=== PATIENT | male | born 1950 | race Caucasian/White ===

== ENCOUNTER 2019-06-06 12:15 | Inpatient (IN) | payer OTHER, MEDICAID ==
[~2019-06-06] VITALS: Ht 167.6 cm; Wt 87.5 kg
--- NOTE | 2019-06-06 12:21 | NUR ---
Patient to ER bed 7 to gown for evaluation. Side rails up. Report given to CARLY Presley.
--- NOTE | 2019-06-06 12:25 | NUR ---
Pt kelly by caregiver, pt presents to ER with persistent fever 102.0 and wheezing,O2 95% at this time, pt Alert to voice, opens eyes spontaneously, pt contracted, arrived with G-tube , cap refill <3, HR elevated 122. will continue to monitor
[2019-06-06 12:28] VITALS: BP_SYST 151
[2019-06-06] MEDS ORDERED: NACL 0.9% 1,000 ML IV ONE ×2 (12:45→13:30)
[2019-06-06] MEDS ORDERED: IPRATROPIUM/ALBUTEROL SULFATE 3 ML AMPUL.NEB (DUONEB) INH ONE (12:45)
[2019-06-06] MEDS ORDERED: IBUPROFEN 100 MG/5 ML UDC GT ONE (12:45)
--- NOTE | 2019-06-06 13:07 | NUR ---
16# FR Buitrago catheter with use of sterile technique. Immediate return of 200 cc urine noted. Bedside drainage bag placed below level of bladder. Urine sample collected and sent to lab. Pt tolerated procedure . Patient arrived with buitrago in place, changed due to standard of practice prior to admission. Patient unable to toilet self.
--- NOTE | 2019-06-06 13:12 | NUR ---
Mary Nayak at bedside examining patient.
[2019-06-06] MEDS ORDERED: DILTIAZEM HCL 25 MG/5 ML VIAL IVP ONE (13:30)
[2019-06-06] MEDS ORDERED: PIPERACILLIN/TAZO 3.375 GM in NS 50 ML IV ONE (13:30)
[2019-06-06] MEDS ORDERED: VANCOMYCIN HCL 1,000 MG in NS 250 ML IV ONE (13:30)
--- NOTE | 2019-06-06 13:30 | NUR ---
# 22 gauge angiocath placed to right chest. Use of asceptic technique. Opsite placed over site. Blood return noted. Blood for lab drawn from site. Flushed with 10 cc of normal saline. No evidence of infiltration noted. Patient tolerated well.
[2019-06-06 13:32] LABS: BILIRUBIN,URINE NEGATIVE (NEGATIVE); BLOOD, URINE NEGATIVE (NEGATIVE); CLARITY/URINE CLEAR (CLEAR); COLOR,URINE YELLOW (YELLOW); GLUCOSE,URINE NEGATIVE (NEGATIVE); KETONES,URINE NEGATIVE (NEGATIVE); LEUKOCYTE ESTERASE ,URINE NEGATIVE (NEGATIVE); NITRITE, URINE NEGATIVE (NEGATIVE); PROTEIN URINE 1+ (NEGATIVE)
[2019-06-06] MEDS ORDERED: LAM100 PO (13:32)
[2019-06-06] MEDS ORDERED: OSCD500 GT (13:32)
[2019-06-06] MEDS ORDERED: BUDE6HFA INH (13:32)
[2019-06-06] MEDS ORDERED: POLY17PO20 PO (13:32)
[2019-06-06] MEDS ORDERED: ATRMDI INH (13:32)
[2019-06-06] MEDS ORDERED: BACL10TA GT (13:32)
[2019-06-06] MEDS ORDERED: LAMO150T2 PO (13:33)
[2019-06-06] MEDS ORDERED: VITD2000 GT (13:37)
[2019-06-06] MEDS ORDERED: MONT10TA25 GT (13:37)
[2019-06-06] MEDS ORDERED: MULT-33 GT (13:37)
[2019-06-06] MEDS ORDERED: LORA0.5T GT (13:37)
[2019-06-06] MEDS ORDERED: [UNRECOGNIZED DRUG - CODE] GT (13:37)
--- NOTE | 2019-06-06 13:37 | NUR ---
pt is receiving first NS bolus.
--- NOTE | 2019-06-06 14:15 | NUR ---
Blood cx x 2 and lactic acid were drawn.
[2019-06-06] MEDS ORDERED: VANCOMYCIN HCL 1000 MG/VIAL IV ONE ×2 (14:34→23:34)
--- NOTE | 2019-06-06 14:34 | NUR ---
Daina MURPHY running
[2019-06-06 14:35] LABS: HEMATOCRIT 39.4 % (36-54); HEMOGLOBIN 13.4 g/dL (14.0-18.0); MEAN CORPUSCULAR HEMOGLOBIN 31 pg (27-31); MEAN CORPUSCULAR HGB CONC 34 % (32-36); MEAN CORPUSCULAR VOLUME 91 fL (79.0-98.0); PLATELET COUNT (AUTO) 222 K/uL (130-430); RED BLOOD CELL COUNT(AUTO) 4.31 MIL/uL (4.2-6.2); RED CELL DISTRIBUTION WIDTH 13.5 % (9.0-15.0); WHITE BLOOD COUNT (AUTO) 20.6 K/uL (4.8-10.8)
[2019-06-06] MEDS ORDERED: PIPERACILLIN/TAZOBACTAM 3.375 GM/VIAL (ZOSYN) IV ONE (14:35)
[2019-06-06 14:40] LABS: CALCIUM 8.6 mg/dL (8.4-11.0); CREATININE 0.55 mg/dL (0.55-1.30)
[2019-06-06 14:46] LABS: ALBUMIN 2.9 g/dL (3.4-4.8); TOTAL BILIRUBIN 0.6 mg/dL (0.0-1.0)
--- NOTE | 2019-06-06 15:07 | NUR ---
Vancomycin IVPB running. Pt is currently on the secong NS bolus.
[2019-06-06 15:14] LABS: BAND % (MANUAL) 17 % (0-6); BASOPHILS % (MANUAL) 0 % (0-2); EOSINOPHILS % (MANUAL) 0 % (0-7); LYMPHOCYTES % (MANUAL) 3 % (20-46); METAMYELOCYTES % 1 % (0-0); MONOCYTES % (MANUAL) 5 % (0-11)
--- NOTE | 2019-06-06 15:40 | NUR ---
Patient will be admitted to care of Dr. Ridley. Admitted to tele unit. Will go to room 107B. Belongings list completed. Summary report printed. Report will be given at bedside.
--- NOTE | 2019-06-06 15:43 | NUR ---
ADMISSION NOTE Received patient from ER via segun, received report from AMAURY CARROLL. Patient admitted with diagnosis of PNEUMONIA/SEPSIS. Patient oriented to hospital routine, call light, toileting and safety-..
[2019-06-06 16:03] VITALS: BP_SYST 146
--- NOTE | 2019-06-06 16:35 | NUR ---
RN NOTES PATIENT IN BED AT THIS TIME OPENS EYES SPONTANEOUSLY AND COVERED WITH LIGHT BLANKET ON GOING IV ATB VANCOMYCIN INFUSING . WILL MONITOR
[2019-06-06 16:38] VITALS: BP_SYST 146
[2019-06-06] MEDS ORDERED: NACL 0.9% 1,000 ML IV SCH ×2 (16:58→17:15)
[2019-06-06] MEDS ORDERED: IPRATROPIUM BROMIDE 17 mCg/ACTUATION, 12.9 GM AER.W.ADAP INH SCH (17:00)
--- NOTE | 2019-06-06 17:44 | NUR ---
END RN NOTES PATIENT KEEP FRESH COVERED WITH LIGHT BLANKETS, NO DISTRESS , STARTED WITH GTF INTACT AND IN PLACE NO RESIDUAL NOTED JEVITY 1.2 INITIAL 60 CC/HR, KEEP HOB ELEVATED, NO SEIZURE NOTED, IV VANCOMYCIN STILL INFUSING ,WILL CONT TO MONITOR AND FOR LABS IN AM.
[2019-06-06 18:15] VITALS: BP_SYST 146
--- NOTE | 2019-06-06 18:45 | NUR ---
CLARIFICATION OF LAMICTAL PATIENT LAMICTAL DOSAGE WAS CALLED BY PHARMACY AND CALLED SNF SPOKE WITH JOVANA HINDS WHO WAS GIVING THE MEDS STATED THAT PATIENT TAKES LAMICTAL [address] BALL INFORMED AND ORDERED IS . WILL ORDER AND PHARMACY WILL NEED TO VERIFY
[2019-06-06] MEDS: NACL 0.9% 1,000 ML IV SCH (19:00)
[2019-06-06] MEDS: MONTELUKAST 10 MG TABLET GT SCH (19:03)
[2019-06-06] MEDS: ALBUTEROL SULFATE 0.083% 2.5 MG/3 ML VIAL.NEB INH SCH ×2 (19:51→23:17)
[2019-06-06] MEDS: IPRATROPIUM BROM 0.5 MG/2.5 ML VIAL.NEB (ATROVENT) INH SCH (19:51)
--- NOTE | 2019-06-06 20:30 | NUR ---
RECEIVED REPORT FROM AM CARLY MARSHALL AT 1930HR. PATIENT EYES CLOSE.IVF INFUSING AT 80ML/HR TO RIGHT UPPER CHEST SITE SECURED WELL.JEVITY 1.2 G TUBE FEEDING AT 6OML/HR.CHRISTIANSON CATHETER DRAINING WELL CLEAR ROSHAN URINE. OPENS EYES WHEN CALLED HIS NAME LOUD. NON VERBAL. BLINKS EYES . CALL LIGHT WITHIN REACH. BED IN LOW POSITION ,SIDE RAILS WITH SEIZURE PADS. SINUS TACHYCARDIA. BREATHING TREATMENT JUST DONE. WILL MONITOR CLOSELY.
[2019-06-06 20:50] VITALS: BP_SYST 150
[2019-06-06] MEDS ORDERED: LORAZEPAM 0.5 MG GT SCH (21:00)
[2019-06-06] MEDS ORDERED: LamoTRIgine 25 MG TABLET PO SCH (21:00)
[2019-06-06] MEDS ORDERED: LamoTRIgine 100 MG TABLET PO SCH (21:00)
--- NOTE | 2019-06-06 21:35 | NUR ---
NOTICED MANY MEDS ARE PENDING. CALLED OUT PATIENT PHARMACIST ,SAID LAMICTAL ORDERS ARE DUPLICATES,NO IV RATE,REST MEDS WERE WRITTEN NON FORMULARY AND CAN NOT PROCESS THEM ALL. SHE REQUESTED TO D/C DUPLICATES AND DID AND ORDER IVF RATE SEEN AT [facility].HAS BEEN CALLING PHARMACIST 3 TIMES.
--- NOTE | 2019-06-06 22:00 | NUR ---
NOTICED REDNESS FROM LEFT HIP DOWN TO LATERAL MID THIGH ONLY. NO SKIN BREAKDOWN.
--- NOTE | 2019-06-06 22:30 | NUR ---
CAN NOT FIND ZOSYN AND VANCO MEDS IN ALL MED ROOMS. ORDER GIVEN TO NSG. STRATEGY PLANNING CONSULTANT .
[2019-06-06 22:45] VITALS: BP_SYST 107
[2019-06-06] MEDS ORDERED: VANCOMYCIN HCL 1 GM/NS PREMIX 250 ML IV SCH (23:00)
[2019-06-06] MEDS: FAMOTIDINE 20 MG TABLET GT SCH (23:05)
[2019-06-06] MEDS: BACLOFEN 10 MG TABLET GT SCH (23:05)
[2019-06-06] MEDS: LORazepam 1 MG TABLET PO SCH (23:06)
[2019-06-06] MEDS: LamoTRIgine 100 MG TABLET PO SCH (23:06)
[2019-06-06] MEDS: HEPARIN SODIUM,PORCINE 5000 UNITS/ML VIAL SUBCUT SCH (23:12)
--- NOTE | 2019-06-06 23:25 | NUR ---
RECEIVED PATIENT WITH JEVITY 1.2 G TUBE FEEDING AT 60 ML/HR. CHECKED RESIDUAL THIS TIME BEFORE GIVING MEDS 200ML. RE FEED. STOPPED FEEDING ORDERED.
--- NOTE | 2019-06-06 23:30 | NUR ---
TUBE FEEDING STOPPED PER PROTOCOL.
--- NOTE | 2019-06-06 23:40 | NUR ---
COCCYX AND SACRAL AREAS ARE DARK RED SKIN PIGMENTATION. NO SKIN BREAKDOWN. CLEANSED WITH SOAP /WATER DURING BED BATH. ORAL CARE RENDERED.
[2019-06-06] MEDS: PIPERACILLIN/TAZO 4.5GM/DEX-IS 100 ML IV SCH (23:45)
--- NOTE | 2019-06-06 23:50 | NUR ---
IVPB MEDS AVAILABLE AND INITIATED ACCORDING TO ORDERS WAS GIVEN.
--- NOTE | 2019-06-07 01:10 | NUR ---
RE CHECKED RESIDUAL AFTER 1HR,40MINS. ON HOLD .NO RESIDUAL. RESUMED FEEDING AT 30ML/HR.
--- NOTE | 2019-06-07 03:15 | NUR ---
CHECKED HIP /THIGH REDNESS STILL PRESENT.
[2019-06-07] MEDS: ALBUTEROL SULFATE 0.083% 2.5 MG/3 ML VIAL.NEB INH SCH ×6 (03:18→23:19)
--- NOTE | 2019-06-07 06:00 | NUR ---
NO RESIDUAL THIS TIME. FEEDING REMAINS AT 60ML/HR.
--- NOTE | 2019-06-07 07:20 | NUR ---
CLOSING: REPORT GIVEN TO AM RN. SHOWED TO RN REDNESS LEFT HIP DOWN TO THIGH. ALL NEEDS WERE ATTENDED. HAD EPISODES OF SINUS TACHYCARDIA AT 0100 AFTER BT, AND BED BATH. WENT DOWN TO 108 -110 AFTER 3HRS.
--- NOTE | 2019-06-07 08:00 | NUR ---
RN INITIAL NOTES RECEIVED PATIENT IN BED AWAKE SMILES BACK BUT NOT VERBAL, HOB ELEVATED GTUBE FEEDING TOLERATED, NO ASPIRATION NOTED, PATIENT SUPRAPUBIC CATH INTACT, IVF TO RT CHEST INFUSING ORDERED, MD MADE AWARE PATIENT HAS WHEEZING AND ADMITTED WITH REDNESS TO LEFT THIGH, ORDERED CONT HOUSE TX WITH CALMOSEPTINE AND LOWER THE IVF TO 40 FOR THE WHEEZING , CONT WITH BREATHING TX.WILL CONT PLAN OF CARE Addendum: 06/07/19 at 2011 by Lalitha Ceron RN LATE ENTRY 1929 PATIENT CORRECTION FOR CHARTING PATIENT IS NOT ON SUPRAPUBIC CATH BUT WITH CHRISTIANSON CATH,
[2019-06-07 08:29] LABS: BASOPHILS # (AUTO) 0.1 K/uL (0.0-0.2); BASOPHILS % (AUTO) 0.4 % (0.0-2.0); HEMATOCRIT 37.1 % (36-54); HEMOGLOBIN 12.7 g/dL (14.0-18.0); LYMPHOCYTES # (AUTO) 1.1 K/uL (1.0-5.5); LYMPHOCYTES % (AUTO) 7.8 % (20.5-51.5); MEAN CORPUSCULAR HEMOGLOBIN 31 pg (27-31); MEAN CORPUSCULAR HGB CONC 34 % (32-36); MEAN CORPUSCULAR VOLUME 92 fL (79.0-98.0); MONOCYTES # (AUTO) 0.6 K/uL (0.0-1.0); NEUTROPHILS # (AUTO) 12.9 K/uL (1.8-7.7); PLATELET COUNT (AUTO) 223 K/uL (130-430); RED BLOOD CELL COUNT(AUTO) 4.05 MIL/uL (4.2-6.2); RED CELL DISTRIBUTION WIDTH 13.4 % (9.0-15.0); WHITE BLOOD COUNT (AUTO) 14.7 K/uL (4.8-10.8)
[2019-06-07 08:55] LABS: ALBUMIN 2.6 g/dL (3.4-4.8); CREATININE 0.38 mg/dL (0.55-1.30); NEUTROPHILS % (AUTO) 87.8 % (40.0-70.0); POTASSIUM 3.8 mmol/L (3.5-5.1); TOTAL BILIRUBIN 0.6 mg/dL (0.0-1.0)
[2019-06-07] MEDS: CALCIUM CARBONATE/VITAMIN D3 1 TAB TABLET GT SCH (08:57)
[2019-06-07] MEDS: LamoTRIgine 100 MG TABLET PO SCH ×2 (08:58→23:06)
[2019-06-07] MEDS: FAMOTIDINE 20 MG TABLET GT SCH ×2 (08:59→23:07)
[2019-06-07] MEDS: BACLOFEN 10 MG TABLET GT SCH ×3 (08:59→23:06)
[2019-06-07] MEDS: LORazepam 1 MG TABLET PO SCH ×2 (09:00→23:07)
[2019-06-07] MEDS: IPRATROPIUM BROM 0.5 MG/2.5 ML VIAL.NEB (ATROVENT) INH SCH ×3 (09:00→19:51)
[2019-06-07] MEDS: MULTIVITS,CA,MINERALS/IRON/FA 1 TABLET GT SCH (09:00)
[2019-06-07] MEDS: CHOLECALCIFEROL (VITAMIN D3) 2,000 UNIT TABLET GT SCH (09:00)
[2019-06-07] MEDS: POLYETHYLENE GLYCOL 3350, 17 GM/ POWD.PACK PO SCH (09:04)
[2019-06-07] MEDS: HEPARIN SODIUM,PORCINE 5000 UNITS/ML VIAL SUBCUT SCH ×2 (09:08→23:09)
--- NOTE | 2019-06-07 10:00 | NUR ---
ROUNDS PATIENT ON AND OFF AWAKE AND CONT WITH BREATHING TREATMENT , STILL WHEEZING
[2019-06-07 10:46] VITALS: BP_SYST 177
[2019-06-07] MEDS: NACL 0.9% 1,000 ML IV SCH (11:31)
--- NOTE | 2019-06-07 12:00 | NUR ---
ROUNDS PATIENT ASLEEP CONT WITH GTF AND IVF
[2019-06-07 12:59] VITALS: BP_SYST 145
[2019-06-07] MEDS: PIPERACILLIN/TAZO 4.5GM/DEX-IS 100 ML IV SCH ×2 (14:00→23:02)
--- NOTE | 2019-06-07 14:00 | NUR ---
ROUNDS PATIENT AWAKE AND SMILES BACK
[2019-06-07] MEDS: VANCOMYCIN HCL 1,000 MG in NS 250 ML IV SCH (14:21)
[2019-06-07 18:05] VITALS: BP_SYST 164
--- NOTE | 2019-06-07 19:00 | NUR ---
END RN REPORT PATIENT CONT WITH PLAN OF CARE NO ASPIRATION , HEELZ UP IN PILLOW , STILL WITH REDNESS TO LEFT UPPER THIGH AND BACK TO /REPOSITIONED AND KEEP BACK DRY AND CLEAN.CHRISTIANSON CATH INTACT . ,
--- NOTE | 2019-06-07 20:40 | NUR ---
INITIAL NOTES: PATIENT IN BED ,EYES OPEN,BLINKING TO ANSWER QUESTIONS.JUST FINISH BREATHING TX, HAVING EXPIRATORY AND INSPIRATORY WHEEZING, ON ROOM AIR. FACE GET FLUSHED WITH COUGHING. NO SEIZURE.IVF AT 40ML/HR TO RIGHT UPPER CHEST,SITE CLEAR.G TUBE FEEDING AT 60ML/HR. SITE NO REDNESS. NO RESIDUAL.ABDOMEN LARGE AND GRAVID. CHRISTIANSON CATHETER IN PLACE WITH ROSHAN COLOR URINE. ALL EXTREMITIES CONTRACTED. SKIN AT PERINEAL AREAS DARK RED PIGMENTATION,REDNESS TO LEFT THIGH DOWN TO MID THIGH. REPOSITIONED. YANKAUER SUCTION ORALLY AFTER COUGH,LOOSE THIN SECRETIONS. SINUS TACHYCARDIA. BP 163/87. WILL MONITOR CLOSELY.
[2019-06-07 21:30] VITALS: BP_SYST 163
--- NOTE | 2019-06-07 22:00 | NUR ---
REPOSITIONED TO SIDE.SUCTIONED ORALLY AFTER PRODUCTIVE COUGHS. CALL LIGHT WITHIN REACH.
--- NOTE | 2019-06-07 22:35 | NUR ---
CONTINUE TO HAVE WHEEZING A LOT, COUGHS FREQUENTLY. LUNGS WITH CRACKLES.HAD BT NO EFFECT. WILL CALL MD.URINE OUT PUT 350ML .
[2019-06-07] MEDS: MONTELUKAST 10 MG TABLET GT SCH (23:07)
--- NOTE | 2019-06-07 23:26 | NUR ---
PAGED PAGED DOCTOR MOORE
--- NOTE | 2019-06-07 23:30 | NUR ---
JERO GALLEGO CALLED BACK. NOTIFIED MD PATIENT WHEEZING INCREASE,LUNGS WITH CRACKLES,WET, BP ELEVATED , >165/ 95 X2 THIS PM AND >150/90 DURING THE DAY WITH ORDERS.
[2019-06-07] MEDS ORDERED: FUROSEMIDE 40 MG/4 ML VIAL IVP ONE (23:45)
[2019-06-07] MEDS ORDERED: MILK OF MAGNESIA 30 ML UDC GT PRN (23:45)
--- NOTE | 2019-06-07 23:50 | NUR ---
lasix 40mg iv given as ordered. feeding tube rate to 30ml/hr as ordered. ivf rate decrease to 20ml/hr as ordered.
[2019-06-08 00:26] VITALS: BP_SYST 168
--- NOTE | 2019-06-08 01:30 | NUR ---
BOWEL MOVEMENT: HAD LARGE SOFT DARK GREENISH STOOL. EH AND BED BATH DONE. LESS WHEEZING. WITH GOOD URINE OUTPUT.
[2019-06-08] MEDS: ALBUTEROL SULFATE 0.083% 2.5 MG/3 ML VIAL.NEB INH SCH ×6 (02:10→23:05)
[2019-06-08] MEDS: VANCOMYCIN HCL 1,000 MG in NS 250 ML IV SCH ×2 (03:15→12:17)
[2019-06-08 04:00] VITALS: BP_SYST 140
--- NOTE | 2019-06-08 04:00 | NUR ---
PATIENT REPOSITIONED,.NO RESIDUAL. LESS WHEEZING.NOD HEAD TO ANSWER QUESTIONS.
[2019-06-08] MEDS: PIPERACILLIN/TAZO 4.5GM/DEX-IS 100 ML IV SCH ×4 (06:00→22:35)
--- NOTE | 2019-06-08 07:00 | NUR ---
CLOSING: NO SEIZURE WHOLE SHIFT. STILL WHEEZING WITH ACTIVITY. RESPI.THERAPIST CALLED TO GIVE BREATHING TREATMENT WITH SLIGHT RELIEF. IVF FEEDING TUBE,INFUSING WELL. CHRISTIANSON DRAIN WELL. WILL GIVE REPORT TO AM RN FOR FURTHER CARE.
--- NOTE | 2019-06-08 07:11 | NUR ---
Nutrition Update Hussein Scale 11 noted. Pt admitted for Pneumonia, sepsis Diet: Jevity 1.5 at 60ml/hr, FWF 100ml Q6H via GT BMI: 31.2 kg/m2 RD to follow per nutrition care standards.
[2019-06-08] MEDS: IPRATROPIUM BROM 0.5 MG/2.5 ML VIAL.NEB (ATROVENT) INH SCH ×4 (07:42→18:55)
[2019-06-08 08:00] VITALS: BP_SYST 139
--- NOTE | 2019-06-08 08:00 | NUR ---
ASSUMPTION OF CARE: RECEIVED PT A/A/CONFUSED, NON-VERBAL, ABLE TO COMMUNICATE BY BLINKING EYES ONCE FOR YES, TWICE FOR NO, AFEBRILE, HR 130 BPM, PT IS ASYMPTOMATIC, NO C/O S/S OF DISTRESS, NO INDICATION OF PAIN, ORIENTED TO UNIT, CALL LIGHT PLACED WITHIN REACH, WILL CON'T TO MONITOR AND ASSESS.
--- NOTE | 2019-06-08 08:00 | NUR ---
ASSUMPTION OF CARE: RECEIVED PT AWAKE, ORIENTED TO NAME ONLY, NON-VERBAL, ABLE TO COMMUNICATE BY BLINKING EYES, ONCE FOR YES, TWICE FOR NO, DENIES PAIN, AFEBRILE, HB=837 BPM, ASYMPTOMATIC, BREATH SOUNDS HAVE WHEEZES IN BILATERAL UPPER LOBES, BREATHING UNLABORED, HAS SCHEDULE BREATHING TX Q6, SATURATING 95% ORA, IV SITE INTACT, PATENT, NO REDNESS OR SWELLING, ORIENTED TO UNIT, CALL LIGHT PLACED WITHIN REACH, WILL CON'T TO MONITOR AND ASSESS.
[2019-06-08 08:48] LABS: ALBUMIN 2.6 g/dL (3.4-4.8); CALCIUM 7.9 mg/dL (8.4-11.0); CREATININE 0.45 mg/dL (0.55-1.30); POTASSIUM 3.8 mmol/L (3.5-5.1); TOTAL BILIRUBIN 0.6 mg/dL (0.0-1.0)
--- NOTE | 2019-06-08 09:00 | NUR ---
DYER HELPER: MORNING MEDS GIVEN, PER ORDERED BY Kim, TOLERATED WELL, WILL CON'T TO MONITOR AND ASSESS.
--- NOTE | 2019-06-08 09:58 | NUR ---
CONSULT CARDIOLOGY Joey LAGUNA CALLED SPOKE TO [facility] DIALED [phone] BALL
--- NOTE | 2019-06-08 10:02 | NUR ---
CONSULTATION PAGED REASON FOR CONSULTATION:TACHYCARDIA WAS CONSULT CALLED?Y PERSON WHO WAS NOTIFIED:STAS CONSULTING PHYSICIAN:CHRISTIANNE LEE APPRAISER ART SPECIALTY:CARDIO APPRAISER ART PHONE NUMBER:[phone] ORDERING PHYSICIAN:JERO ENRIQUEZ
--- NOTE | 2019-06-08 10:15 | NUR ---
2-D ECHO: US AT BEDSIDE TO ADMINISTER 2D ECHO, PER REQUESTED BY DR. HANSEL Alvarez P. TO READ.
[2019-06-08] MEDS: LORazepam 1 MG TABLET PO SCH ×2 (10:20→22:37)
[2019-06-08] MEDS: FAMOTIDINE 20 MG TABLET GT SCH ×2 (10:20→22:35)
[2019-06-08] MEDS: BACLOFEN 10 MG TABLET GT SCH ×3 (10:20→22:36)
[2019-06-08] MEDS: CHOLECALCIFEROL (VITAMIN D3) 2,000 UNIT TABLET GT SCH (10:20)
[2019-06-08] MEDS: CALCIUM CARBONATE/VITAMIN D3 1 TAB TABLET GT SCH (10:21)
[2019-06-08] MEDS: LamoTRIgine 100 MG TABLET PO SCH ×2 (10:21→22:36)
[2019-06-08] MEDS: MULTIVITS,CA,MINERALS/IRON/FA 1 TABLET GT SCH (10:21)
[2019-06-08] MEDS: HEPARIN SODIUM,PORCINE 5000 UNITS/ML VIAL SUBCUT SCH ×2 (10:23→22:38)
[2019-06-08] MEDS: POLYETHYLENE GLYCOL 3350, 17 GM/ POWD.PACK PO SCH (10:24)
[2019-06-08 12:11] VITALS: BP_SYST 148
[2019-06-08] MEDS: NACL 0.9% 1,000 ML IV SCH (12:17)
--- NOTE | 2019-06-08 12:28 | NUR ---
Dietitian Recommendations *Recommend Pivot 1.5 at 55ml/hr (goal rate), FWF 100ml Q6H via GT. Provides: 1980 kcal, 124 gm protein and 1402ml free water daily. Meets: 94% of lower end of estimated calorie needs and 86% of upper end of estimated protein needs. *May use Jevity 1.2 once fluid balance is maintained. *Continue MVI supplements. Please see Nutritional Assessment for details. SHAMA BOOKER Addendum: 06/08/19 at [address] SHAMA contacted Dr. Carlson. 06/08/19 1226 Cookie from exchange answered. SHAMA awaiting MD call back for EN rec.
--- NOTE | 2019-06-08 14:00 | NUR ---
NURSES NOTES: PT REMAINS STABLE, NO S/S OF DISTRESS, NO INDICATION OF PAIN OR DISCOMFORT, CALL LIGHT WITHIN REACH, REPOSITIONED FOR COMFORT, WILL CON'T TO MONITOR AND ASSESS.
--- NOTE | 2019-06-08 16:00 | NUR ---
NURSES NOTES: PT REPOSITIONED IN POSITIONED OF COMFORT, PARTIAL LINEN, DRAW SHEET CHANGED, TOLERATED WELL, WILL CON'T WITH POC.
[2019-06-08 16:54] VITALS: BP_SYST 157
[2019-06-08] MEDS: MONTELUKAST 10 MG TABLET GT SCH (18:00)
--- NOTE | 2019-06-08 18:00 | NUR ---
END OF SHIFT: PT REMAINS STABLE, NEEDS MET, POSITIONED FOR COMFORT, CALL LIGHT PLACED WITHIN REACH, WILL CON'T TO MONITOR AND ASSESS.
[2019-06-08 21:00] VITALS: BP_SYST 148
--- NOTE | 2019-06-08 22:15 | NUR ---
JEVITY 1.5 @ 30 ML HOUR TUBE PLACEMENT VERIFIED Residual 10 ml HOB kept elevated no s/sx of aspiration continue to monitor .
--- NOTE | 2019-06-09 | NUR ---
VANCOMYCIN 1000 MG IVPB administer as ordered for Dx PNA no adverse reaction noted .
[2019-06-09] MEDS: VANCOMYCIN HCL 1,000 MG in NS 250 ML IV SCH ×3 (00:12→23:27)
[2019-06-09 01:32] VITALS: BP_SYST 147
[2019-06-09] MEDS: ALBUTEROL SULFATE 0.083% 2.5 MG/3 ML VIAL.NEB INH SCH ×7 (03:00→23:50)
--- NOTE | 2019-06-09 03:16 | NUR ---
Reposition & Turning off loading with pillows patient contracted both arms & legs HOB elevated kept clean & dry as needed .
--- NOTE | 2019-06-09 03:34 | NUR ---
Nebulization ALBUTEROL treatment administer for wheezing HOB kept elevated continue to monitor .
--- NOTE | 2019-06-09 05:34 | NUR ---
HOURLY ROUNDING Patient Resting HOB elevated chest movement symmetrical no use of accessory muscles POSITION CHANGE TOLERATED .
[2019-06-09] MEDS: PIPERACILLIN/TAZO 4.5GM/DEX-IS 100 ML IV SCH ×3 (06:17→21:45)
[2019-06-09 07:35] LABS: CALCIUM 8.4 mg/dL (8.4-11.0); CREATININE 0.62 mg/dL (0.55-1.30); POTASSIUM 3.3 mmol/L (3.5-5.1)
[2019-06-09 07:46] LABS: BASOPHILS # (AUTO) 0.1 K/uL (0.0-0.2); BASOPHILS % (AUTO) 0.5 % (0.0-2.0); EOSINOPHILS # (AUTO) 0.2 K/uL (0.0-0.4); EOSINOPHILS % (AUTO) 1.6 % (0.0-4.0); HEMATOCRIT 34.4 % (36-54); HEMOGLOBIN 11.9 g/dL (14.0-18.0); LYMPHOCYTES # (AUTO) 1.3 K/uL (1.0-5.5); LYMPHOCYTES % (AUTO) 12.9 % (20.5-51.5); MEAN CORPUSCULAR HEMOGLOBIN 31 pg (27-31); MEAN CORPUSCULAR HGB CONC 35 % (32-36); MEAN CORPUSCULAR VOLUME 91 fL (79.0-98.0); MONOCYTES % (AUTO) 10.5 % (1.7-9.3); NEUTROPHILS # (AUTO) 7.4 K/uL (1.8-7.7); NEUTROPHILS % (AUTO) 74.5 % (40.0-70.0); PLATELET COUNT (AUTO) 299 K/uL (130-430); RED CELL DISTRIBUTION WIDTH 13.5 % (9.0-15.0)
[2019-06-09 08:00] VITALS: BP_SYST 155
--- NOTE | 2019-06-09 08:00 | NUR ---
Note Pt resting in bed with GT feedings infusing well at this time. No SOB/resp distress or pain/discomfort noted at this time. IV in right chest wall intact and patent infusing IVF's well. Tele unit attached and intact. Shabazz catheter intact and draining. Pt has seizure pads on bed rails both sides. Call light within reach.
[2019-06-09 08:16] LABS: WHITE BLOOD COUNT (AUTO) 9.9 K/uL (4.8-10.8)
[2019-06-09] MEDS: HEPARIN SODIUM,PORCINE 5000 UNITS/ML VIAL SUBCUT SCH ×2 (08:43→21:47)
[2019-06-09] MEDS: FAMOTIDINE 20 MG TABLET GT SCH ×2 (08:43→21:46)
[2019-06-09] MEDS: CALCIUM CARBONATE/VITAMIN D3 1 TAB TABLET GT SCH (08:43)
[2019-06-09] MEDS: MULTIVITS,CA,MINERALS/IRON/FA 1 TABLET GT SCH (08:43)
[2019-06-09] MEDS: LORazepam 1 MG TABLET PO SCH ×2 (08:44→21:44)
[2019-06-09] MEDS: CHOLECALCIFEROL (VITAMIN D3) 2,000 UNIT TABLET GT SCH (08:44)
[2019-06-09] MEDS: POLYETHYLENE GLYCOL 3350, 17 GM/ POWD.PACK PO SCH (08:44)
[2019-06-09] MEDS: BACLOFEN 10 MG TABLET GT SCH ×3 (08:45→21:46)
[2019-06-09] MEDS: LamoTRIgine 100 MG TABLET PO SCH ×2 (08:45→21:45)
[2019-06-09 10:15] VITALS: BP_SYST 155
[2019-06-09] MEDS ORDERED: POTASSIUM CHLORIDE 20 MEQ/PKT PACKET PO ONE (11:00)
[2019-06-09] MEDS: IPRATROPIUM BROM 0.5 MG/2.5 ML VIAL.NEB (ATROVENT) INH SCH ×3 (11:10→20:15)
[2019-06-09] MEDS: NACL 0.9% 1,000 ML IV SCH (11:46)
--- NOTE | 2019-06-09 12:00 | NUR ---
Note Pt was seen and assessed by Dr Carlson at 1035am. No SOB/resp distress was noted, Dr Carlson requested that pt be put on O2 at 2L/nc at 1035am for visible wheezes. Order carried out. Pt resting comfortably at this time. No needs noted. Call light within reach.
[2019-06-09 12:34] VITALS: BP_SYST 150
[2019-06-09] MEDS: methylPREDNISolone SOD SUCC/PF 62.5 MG/ML VIAL IVP SCH ×2 (15:40→21:46)
--- NOTE | 2019-06-09 15:40 | NUR ---
Wound Evaluation: Late note for 154 secondary to patient care. Wound Consult ordered for Low Hussein Score. Patient evaluated for a low Hussein score of an 11. Patient was awake, alert, intellectually impaired, non-verbal, non-responsive to verbal commands, and received in a Spring Bed with an IsoFlex CHASE mattress with low air-loss therapy initiated. Patient needs to be turned in bed. Skin assessment: 1. Buttocks: Blanchable red erythema from IAD, present on admission. Buttock has multiple areas of dry. flaky skin with open (non-wound) areas with normal colored tissue visible. Recommend: Cleanse involved areas with mild soap and water. Pat dry. Apply Calmoseptine cream to involved areas. Perform site care 4 times a day, and as needed for soiling. 2. Left Lateral Thigh: Large area of blanchable red erythema with mild calor, from proximal leg to area just superior to knee. No odor, no drainage. 3. Right Lateral Thigh: Large area of blanchable red erythema with mild calor, from proximal leg to area just superior to knee. No odor, no drainage. 4. Mid Back to Lower Back: Large area of blanchable red erythema with mild calor. No odor, no drainage. Recommend: Apply Elimite cream to skin and sites 2-4 once as ordered by Dr. Carlson. 5. Left Heel: Blanchable erythema, present on admission. 6. Right Heel: Blanchable erythema, present on admission. Recommend: Elevate, offload and float bilateral heels with one pillow lengthwise under each extremity at all times. In addition, place a wedge, then a pillow underneath the left calf to float left heel at all times. Recommend: Reposition patient side to side only every 2 hours with pillow support. Elevate, offload and float bilateral heels with one pillow lengthwise under each extremity at all times. In addition, place a wedge, then a pillow underneath the left calf to float left heel at all times. Offload pressure areas with pillows for pressure re-distribution. Perform skin care and monitor skin integrity Q shift. Use moisture barrier cream on moisture susceptible areas QID and PRN for soiling. Maintain patient on a low air-loss mattress.
--- NOTE | 2019-06-09 16:00 | NUR ---
Note Pt's nursing medical supervisor from his residential facility came to visit pt around 1500. Pt was assessed with Mateo title insurance sales representative for skin integrity at this time as well. Call light within reach.
[2019-06-09 16:09] VITALS: BP_SYST 142
[2019-06-09] MEDS: PERMETHRIN 5% 60 GM CREAM.GM. TP ONE ×2 (17:18→21:45)
[2019-06-09] MEDS: MONTELUKAST 10 MG TABLET GT SCH (17:20)
--- NOTE | 2019-06-09 18:50 | NUR ---
Note Pt resting in bed. No needs noted. Pt's tele unit attached and intact all shift. Pt was checked on q1' and PRN all shift for needs and care. IV in right chest intact and patent infusing IVF's well. Shabazz catheter intact and draining well all shift. No needs noted. Call light within reach. GT feedings infusing well all shift.
[2019-06-09 21:01] VITALS: BP_SYST 137
--- NOTE | 2019-06-09 21:35 | NUR ---
Reposition & Turning patient on schedule off loading with pillows comfort measures also implemented contractures noted to upper & lower extremities , activity tolerated .
--- NOTE | 2019-06-10 | NUR ---
ELIMITE Topical ointment applied to front & back body surface areas , patient awake & tolerated .
[2019-06-10 01:18] VITALS: BP_SYST 130; BP_SYST 169
--- NOTE | 2019-06-10 03:27 | NUR ---
VANCOMYCIN 1000 MG IVPB administer as ordered no adverse reaction noted chest movement Remains unlabored / .
[2019-06-10] MEDS: ALBUTEROL SULFATE 0.083% 2.5 MG/3 ML VIAL.NEB INH SCH ×6 (04:02→23:00)
--- NOTE | 2019-06-10 05:18 | NUR ---
Reposition & Turning off loading with pillows on two hour schedule kept clean also dry as needed & prn activity tolerated .
[2019-06-10] MEDS: PIPERACILLIN/TAZO 4.5GM/DEX-IS 100 ML IV SCH ×3 (06:27→21:10)
[2019-06-10] MEDS: methylPREDNISolone SOD SUCC/PF 62.5 MG/ML VIAL IVP SCH ×3 (06:27→21:10)
[2019-06-10 07:08] LABS: BASOPHILS % (AUTO) 0.1 % (0.0-2.0); HEMATOCRIT 40.1 % (36-54); HEMOGLOBIN 13.7 g/dL (14.0-18.0); LYMPHOCYTES # (AUTO) 0.5 K/uL (1.0-5.5); LYMPHOCYTES % (AUTO) 8.4 % (20.5-51.5); MEAN CORPUSCULAR HEMOGLOBIN 32 pg (27-31); MEAN CORPUSCULAR HGB CONC 34 % (32-36); MEAN CORPUSCULAR VOLUME 93 fL (79.0-98.0); MONOCYTES # (AUTO) 0.1 K/uL (0.0-1.0); MONOCYTES % (AUTO) 1.1 % (1.7-9.3); NEUTROPHILS % (AUTO) 90.4 % (40.0-70.0); PLATELET COUNT (AUTO) 313 K/uL (130-430); RED BLOOD CELL COUNT(AUTO) 4.34 MIL/uL (4.2-6.2); RED CELL DISTRIBUTION WIDTH 13.6 % (9.0-15.0)
[2019-06-10 07:22] LABS: CALCIUM 9.3 mg/dL (8.4-11.0); CREATININE 0.68 mg/dL (0.55-1.30); POTASSIUM 4.7 mmol/L (3.5-5.1)
--- NOTE | 2019-06-10 07:30 | NUR ---
Opening note patient resting in bed at this time, No SOB. No facial grimacing. Iv patent, intact, and infusing fluids as ordered. no adverse side effects noted. On GT feeding, tolerating well. No residual noted. no nausea, no vomiting noted. Shabazz catheter in place, draining yellow urine. On safety, aspiration and seizure precautions, HOB kept elevated. bed alarm on, bed in lowest position, 3 side rails up. call light within reach. patient in stable condition. padded side rails in place. Will continue to monitor.
[2019-06-10 07:40] LABS: WHITE BLOOD COUNT (AUTO) 5.6 K/uL (4.8-10.8)
[2019-06-10 08:15] VITALS: BP_SYST 156
[2019-06-10] MEDS: IPRATROPIUM BROM 0.5 MG/2.5 ML VIAL.NEB (ATROVENT) INH SCH ×4 (08:26→20:16)
[2019-06-10] MEDS: CALCIUM CARBONATE/VITAMIN D3 1 TAB TABLET GT SCH (08:31)
[2019-06-10] MEDS: LamoTRIgine 100 MG TABLET PO SCH ×2 (08:31→20:16)
[2019-06-10] MEDS: CHOLECALCIFEROL (VITAMIN D3) 2,000 UNIT TABLET GT SCH (08:31)
[2019-06-10] MEDS: MULTIVITS,CA,MINERALS/IRON/FA 1 TABLET GT SCH (08:31)
[2019-06-10] MEDS: BACLOFEN 10 MG TABLET GT SCH ×3 (08:31→20:16)
[2019-06-10] MEDS: FAMOTIDINE 20 MG TABLET GT SCH ×2 (08:31→20:16)
[2019-06-10] MEDS: POLYETHYLENE GLYCOL 3350, 17 GM/ POWD.PACK PO SCH (08:32)
[2019-06-10] MEDS: LORazepam 1 MG TABLET PO SCH ×2 (08:32→20:16)
[2019-06-10] MEDS: HEPARIN SODIUM,PORCINE 5000 UNITS/ML VIAL SUBCUT SCH ×2 (08:34→20:17)
--- NOTE | 2019-06-10 09:30 | NUR ---
medications All morning medications given as ordered. no adverse side effects noted. no nausea, no vomiting noted. No residual from GTube.
--- NOTE | 2019-06-10 11:30 | NUR ---
Rounds Skin care provided, linens changed. Oral care provided. patient in stable condition.
[2019-06-10 11:36] VITALS: BP_SYST 141
[2019-06-10] MEDS: VANCOMYCIN HCL 1,000 MG in NS 250 ML IV SCH ×2 (12:02→23:01)
[2019-06-10] MEDS: NACL 0.9% 1,000 ML IV SCH (12:02)
--- NOTE | 2019-06-10 13:30 | NUR ---
GT feeding Gt feeding tolerating well, no residual noted. No nausea, no vomiting noted. No complaints of pain. patient in stable condition.
--- NOTE | 2019-06-10 15:45 | NUR ---
rounds patient resting in bed at this time, no complaints of pain. Iv patent, intact, and infusing fluids as ordered. Gt in place, patent, and intact. No nausea, no vomiting noted.
--- NOTE | 2019-06-10 17:40 | NUR ---
Rounds patient resting in bed at this time, no complaints of pain. Iv patent, intact, and infusing fluids as ordered. no adverse side effects. Patient in stable condition.
[2019-06-10] MEDS: MONTELUKAST 10 MG TABLET GT SCH (18:13)
[2019-06-10 18:20] VITALS: BP_SYST 143
--- NOTE | 2019-06-10 18:35 | NUR ---
Closing note Patient resting in bed at this time, No SOB. No facial grimacing. Iv patent, intact, and infusing fluids as ordered. no adverse side effects noted. On GT feeding, tolerating well. No residual noted. no nausea, no vomiting noted. Shabazz catheter in place, draining yellow urine. On safety, aspiration and seizure precautions, HOB kept elevated. bed alarm on, bed in lowest position, 3 side rails up. call light within reach. patient in stable condition. padded side rails in place. All needs met.
--- NOTE | 2019-06-10 20:00 | NUR ---
PM SHIFT ASSESSMENT Received patient lying in bed, aox1, nonverbal, no sob noted, on 02 2L NC, vital signs stable, no facial grimacing noted for pain, IV line to right upper chest intact and patent, IVF of NS infusing at 20 ml/hr, Gtube feeding ongoing, patient has buitrago catheter secured and draining to gravity, patient repositioned and turned with pillow support, fall and seizure precautions in place, will closely monitor.
--- NOTE | 2019-06-10 21:00 | NUR ---
MED PASS Patient awake, in no distress, due medications administered via gtube, no residual noted, aspiration precautions maintained, repositioned for comfort, fall and safety measures in place.
--- NOTE | 2019-06-10 22:45 | NUR ---
RN ROUNDS Patient resting quietly in bed, no sob noted, remains on 02 2L NC, due medications administered, IV line to right upper chest intact and patent, repositioned and turned with pillow support, bilateral heels offloaded with pillow support, safety and seizure precautions in place, will monitor.
--- NOTE | 2019-06-11 00:08 | NUR ---
RN ROUNDS Patient resting quietly in bed, no sob noted, remains on 02 2L NC, vital signs stable, repositioned and turned with pillow support, bilateral heels offloaded with pillow support, safety and seizure precautions in place, will monitor.
[2019-06-11 00:14] VITALS: BP_SYST 152
--- NOTE | 2019-06-11 00:15 | NUR ---
PAGED PAGED Joey TONG FOR ORDERS
--- NOTE | 2019-06-11 00:23 | NUR ---
HEART RATE Patient's heart rate sustaining in the 140's, paged Dr. Joey Grullon, called back, new medication orders for cardizem tab and IVP ordered. Will carry out.
[2019-06-11] MEDS ORDERED: DILTIAZEM HCL 25 MG/5 ML VIAL IVP PRN (00:30)
--- NOTE | 2019-06-11 02:07 | NUR ---
RN ROUNDS Patient resting quietly in bed, respirations even and unlabored, remains on 02 2L NC, repositioned and turned with pillow support, bilateral heels offloaded with pillow support, safety and seizure precautions in place, will monitor.
[2019-06-11] MEDS: ALBUTEROL SULFATE 0.083% 2.5 MG/3 ML VIAL.NEB INH SCH ×4 (03:24→19:31)
--- NOTE | 2019-06-11 04:03 | NUR ---
RN ROUNDS Patient continues to resting quietly in bed, respirations even and unlabored, remains on 02 2L NC, repositioned and turned with pillow support, bilateral heels offloaded with pillow support, safety and seizure precautions in place, will monitor.
[2019-06-11] MEDS: methylPREDNISolone SOD SUCC/PF 62.5 MG/ML VIAL IVP SCH ×2 (05:28→21:09)
[2019-06-11] MEDS: PIPERACILLIN/TAZO 4.5GM/DEX-IS 100 ML IV SCH ×3 (05:29→22:03)
[2019-06-11] MEDS: DILTIAZEM HCL 60 MG TABLET PO SCH ×3 (05:30→22:04)
--- NOTE | 2019-06-11 06:21 | NUR ---
RN ROUNDS Patient awake, respirations even and unlabored, remains on 02 2L NC, due medications administered, vital signs stable, patient repositioned and turned with pillow support, bilateral heels offloaded with pillow support, buitrago catheter secured and to gravity draining yellow urine, safety and seizure precautions maintained, no seizure activity noted through out the shift, will continue to monitor until report given to am nurse.
[2019-06-11] MEDS: IPRATROPIUM BROM 0.5 MG/2.5 ML VIAL.NEB (ATROVENT) INH SCH ×4 (07:26→19:30)
--- NOTE | 2019-06-11 07:30 | NUR ---
Opening note Patient resting in bed at this time, No SOB. No facial grimacing. Iv patent, intact, and infusing fluids as ordered. no adverse side effects noted. On GT feeding, tolerating well. No residual noted. no nausea, no vomiting noted. Shabazz catheter in place, draining yellow urine to gravity. On safety, aspiration and seizure precautions, HOB kept elevated. bed alarm on, bed in lowest position, 3 side rails up. call light within reach. patient in stable condition. padded side rails in place. Will continue to monitor
[2019-06-11 08:30] VITALS: BP_SYST 125
[2019-06-11] MEDS: FAMOTIDINE 20 MG TABLET GT SCH ×2 (09:28→21:07)
[2019-06-11] MEDS: MULTIVITS,CA,MINERALS/IRON/FA 1 TABLET GT SCH (09:28)
[2019-06-11] MEDS: CALCIUM CARBONATE/VITAMIN D3 1 TAB TABLET GT SCH (09:29)
[2019-06-11] MEDS: BACLOFEN 10 MG TABLET GT SCH ×3 (09:29→21:08)
[2019-06-11] MEDS: LORazepam 1 MG TABLET PO SCH ×2 (09:29→21:08)
[2019-06-11] MEDS: CHOLECALCIFEROL (VITAMIN D3) 2,000 UNIT TABLET GT SCH (09:29)
[2019-06-11] MEDS: LamoTRIgine 100 MG TABLET PO SCH ×2 (09:29→21:09)
--- NOTE | 2019-06-11 09:30 | NUR ---
medications All morning medications given as ordered. no adverse side effects noted. no nausea, no vomiting noted. No residual from GTube.
[2019-06-11] MEDS: HEPARIN SODIUM,PORCINE 5000 UNITS/ML VIAL SUBCUT SCH ×2 (09:32→21:15)
[2019-06-11] MEDS: POLYETHYLENE GLYCOL 3350, 17 GM/ POWD.PACK PO SCH (09:33)
--- NOTE | 2019-06-11 11:11 | NUR ---
Nutrition F/U RD reviewed pt's current EMR including diet Hx, physician notes, nursing notes, pertinent labs/meds/procedures, care trends and care activity. Current Nutrition Support Order: Jevity 1.5 at 60ml/hr, FWF 100ml Q6H via GTx 4 days Subjective information: Pt seen in bed, non-verbal, EN infusing (510ml infused at time of visit) per MD orders. BG lab value noted to be elevated. Per RN report, EN infusion rate remains to be at 30ml/hr per previous RN report. MD did not call back for RD EN rec on 06/08/19. Current EN regimen provide 864 kcal, 40 gm protein and 981ml free water daily. EN regimen is not adequate and provides 41% of lower end of estimated calorie needs. An increase in infusion rate or concentration is warranted to better meet nutrient needs. Estimated Energy Expenditure (kcals/day) 2471-7314 kcal/day (30-35 kcal/kg ABW for Sepsis/Obesity) Estimated Protein Required (g/day) 105-140 gm/day (1.5-2 gm/kg ABW for Sepsis/Obesity) Estimated Fluid Required (l/day) 1.8 L/day (25ml/kg ABW for geriatric maintenance) Problem/Etiology/Signs/Symptoms Inadequate EN infusion r/t fluid overload AEB current infusion rate of 30ml, RN report and EN intake meeting <75% of estimated needs. (*ongoing) Increased nutrient needs r/t metabolic demands AEB estimated calorie and protein for sepsis. (*ongoing) Expected Outcomes/Goals Monitor EN tolerance and intake w/ goal of pt meeting at least 75% of estimated nutritional needs, labs trending WNL, normal GI function, skin integrity/wt maintenance. Dietitian Recommendations *Recommend Glucerna 1.2 at 70ml/hr (goal rate), Prosource BID, FWF 100ml Q6H via GT. Provides: 2196 kcal, 131 gm protein and 1752ml free water daily. Meets: 90% of upper end of estimated calorie needs and 94% of upper end of estimated protein needs. *May use Jevity 1.2 once fluid balance is maintained. *Continue MVI supplements. Follow Up High Risk: F/U in 2-3days
--- NOTE | 2019-06-11 11:14 | NUR ---
Skin care Skin care provided, linens changed. Patient in stable condition.
--- NOTE | 2019-06-11 11:23 | NUR ---
Dietitian Recommendations *Recommend Glucerna 1.2 at 70ml/hr (goal rate), Prosource BID, FWF 100ml Q6H via GT. Provides: 2196 kcal, 131 gm protein and 1752ml free water daily. Meets: 90% of upper end of estimated calorie needs and 94% of upper end of estimated protein needs. *May use Jevity 1.2 once fluid balance is maintained. *Continue MVI supplements. Please see Nutrition F/U note for details. SHAMA BOOKER Addendum: 06/11/19 at [address] Per Dr. Aldo Acharya agreed w/ Glucerna 1.2 and he wants it only at 30ml/hr. 1131 06/11/19. SHAMA will put in EN order.
[2019-06-11 12:00] VITALS: BP_SYST 143
[2019-06-11] MEDS: VANCOMYCIN HCL 1,000 MG in NS 250 ML IV SCH (12:23)
[2019-06-11] MEDS: NACL 0.9% 1,000 ML IV SCH (12:23)
--- NOTE | 2019-06-11 13:15 | NUR ---
rounds Patient resting in bed at this time, skin care provided. Gt feeding tolerating well. No residual noted. No nausea, no vomiting.
[2019-06-11] MEDS: MENTHOL/ZINC OXIDE 113 GM OINT. TP PRN (15:04)
--- NOTE | 2019-06-11 15:30 | NUR ---
Rounds patient resting in bed at this time, no facial grimacing. Skin care provided. Linens changed. Patient in stable condition.
[2019-06-11 16:14] VITALS: BP_SYST 138
[2019-06-11] MEDS: MONTELUKAST 10 MG TABLET GT SCH (18:27)
[2019-06-11 20:00] VITALS: BP_SYST 174
--- NOTE | 2019-06-11 20:00 | NUR ---
OPENS EYES SPONTANEOUSLY. RESPONDS TO NOXIOUS STIMULI. ON O2 AT 2L/MIN/NC. BREATH SOUNDS WITH ADVENTITIOUS SOUNDS NOTED. BOWEL SOUNDS (+). ON GT FEEDING WITH GLUCERNA 1.2 AT 30CC/HR. RESIDUAL CHECK 20CC. CHRISTIANSON CATH PATENT DRAINING CLEAR YELLOW ROSHAN URINE TO GRAVITY. SINUS RHYTHM.
[2019-06-11 23:23] VITALS: BP_SYST 144
--- NOTE | 2019-06-12 | NUR ---
GT FLUSHED WITH 100CC H2O.
[2019-06-12] MEDS: VANCOMYCIN HCL 1,000 MG in NS 250 ML IV SCH (00:14)
[2019-06-12] MEDS: ALBUTEROL SULFATE 0.083% 2.5 MG/3 ML VIAL.NEB INH SCH ×7 (00:19→23:49)
[2019-06-12] MEDS: MENTHOL/ZINC OXIDE 113 GM OINT. TP PRN (01:48)
--- NOTE | 2019-06-12 02:00 | NUR ---
DOZES ON AND OFF. 1 MOD SFT BROWN STOOL DEFECATED. CLEANED. EH-CARE, CHRISTIANSON CARE, BACK CARE DONE. CALMOSEPTINE AND Z-GUARD APPLIED TO PERINEUM AND REDDENED LEFT BUTTOCK AND THIGH AREAS. SKIN CARE RENDERED. PARTIAL LINEN CHANGE. DOES NOT ASSIST WITH TURNING. TIARA PROC WELL.
--- NOTE | 2019-06-12 04:00 | NUR ---
SLEPT INTERMITTENTLY. SMILES. NO DISTRESS NOTED. TURNED Q2 HRS AND PRN.
--- NOTE | 2019-06-12 06:00 | NUR ---
GT FLUSHED WITH 100CC H2O. TURNED Q2 HRS AND PRN. WHEEZES NOTED. REMAINS IN GUARDED CONDITION.
[2019-06-12] MEDS: DILTIAZEM HCL 60 MG TABLET PO SCH ×3 (06:05→22:32)
[2019-06-12] MEDS: PIPERACILLIN/TAZO 4.5GM/DEX-IS 100 ML IV SCH ×3 (06:06→22:33)
[2019-06-12] MEDS: IPRATROPIUM BROM 0.5 MG/2.5 ML VIAL.NEB (ATROVENT) INH SCH ×4 (07:24→19:41)
[2019-06-12 07:30] LABS: HEMATOCRIT 35.4 % (36-54); HEMOGLOBIN 12.3 g/dL (14.0-18.0); MEAN CORPUSCULAR HEMOGLOBIN 33 pg (27-31); MEAN CORPUSCULAR HGB CONC 35 % (32-36); MEAN CORPUSCULAR VOLUME 95 fL (79.0-98.0); PLATELET COUNT (AUTO) 339 K/uL (130-430); RED BLOOD CELL COUNT(AUTO) 3.74 MIL/uL (4.2-6.2); WHITE BLOOD COUNT (AUTO) 10.6 K/uL (4.8-10.8)
--- NOTE | 2019-06-12 07:55 | NUR ---
INITIAL NOTE RECEIVED PT IN BED, NO S/S OF DISTRESS OR SOB NOTED, PT HAS NO FACIAL GRIMACING NOTED FOR PAIN, PT IN STABLE CONDITION. PT ON OXYGEN 2 LITERS VIA NASAL CANNULA. IV CATHETER PATENT, NO SIGNS OF INFECTION OR INFILTRATION NOTED, RUNNING IV FLUIDS ORDERED. F/C DRAINING VIA GRAVITY. PT HAS A G TUBE, PATENT, NO RESIDUAL, FLUSHES AND PLACEMENT VERIFIED, TOLERATING FEEDINGS ORDERED. PT ON AIR MATTRESS. BED AT LOWEST POSITION. FALL, SAFETY, ASPIRATION AND SAFETY PRECAUTIONS IN PLACE. WILL CONTINUE TO MONITOR PT FOR ANY CHANGES.
[2019-06-12 08:00] VITALS: BP_SYST 134
[2019-06-12 08:38] LABS: ALBUMIN 2.6 g/dL (3.4-4.8); CALCIUM 8.5 mg/dL (8.4-11.0); CREATININE 0.6 mg/dL (0.55-1.30); POTASSIUM 5.2 mmol/L (3.5-5.1); TOTAL BILIRUBIN 0.3 mg/dL (0.0-1.0)
[2019-06-12] MEDS: methylPREDNISolone SOD SUCC/PF 62.5 MG/ML VIAL IVP SCH ×2 (09:16→22:33)
[2019-06-12] MEDS: CHOLECALCIFEROL (VITAMIN D3) 2,000 UNIT TABLET GT SCH (09:17)
[2019-06-12] MEDS: CALCIUM CARBONATE/VITAMIN D3 1 TAB TABLET GT SCH (09:17)
[2019-06-12] MEDS: FAMOTIDINE 20 MG TABLET GT SCH ×2 (09:17→22:32)
[2019-06-12] MEDS: MULTIVITS,CA,MINERALS/IRON/FA 1 TABLET GT SCH (09:18)
[2019-06-12] MEDS: BACLOFEN 10 MG TABLET GT SCH ×3 (09:18→22:31)
[2019-06-12] MEDS: HEPARIN SODIUM,PORCINE 5000 UNITS/ML VIAL SUBCUT SCH ×2 (09:28→22:37)
[2019-06-12] MEDS ORDERED: LORazepam 1 MG TABLET GT ONE (09:30)
[2019-06-12] MEDS ORDERED: BACLOFEN 10 MG TABLET GT ONE (09:30)
[2019-06-12] MEDS ORDERED: LamoTRIgine 100 MG TABLET GT ONE (09:30)
[2019-06-12 10:00] LABS: BAND % (MANUAL) 1 % (0-6); LYMPHOCYTES % (MANUAL) 9 % (20-46)
[2019-06-12 10:01] LABS: BASOPHILS % (MANUAL) 0 % (0-2); EOSINOPHILS % (MANUAL) 0 % (0-7); MONOCYTES % (MANUAL) 3 % (0-11)
--- NOTE | 2019-06-12 10:10 | NUR ---
ROUNDS PT IN BED, NO S/S OF DISTRESS OR SOB NOTED, PT HAS NO C/O PAIN AT THIS TIME, PT IN STABLE CONDITION. PT RESTING COMFORTABLY, WILL CONTINUE TO MONITOR PT FOR ANY CHANGES.
[2019-06-12] MEDS ORDERED: FLU VACC TS2019(65UP)/MF59C/PF 45 MCG/0.5 ML SYRINGE I.M. PRN (12:00)
[2019-06-12] MEDS ORDERED: SODIUM POLYSTYRENE SULFONATE 15 GM/60 ML UDBTL PO ONE (12:30)
--- NOTE | 2019-06-12 12:30 | NUR ---
ROUNDS PT IN BED, NO S/S OF DISTRESS OR SOB NOTED, PT HAS NO FACIAL GRIMACING NOTED FOR PAIN, PT IN STABLE CONDITION, PT RESTING COMFORTABLY, WILL CONTINUE TO MONITOR PT FOR ANY CHANGES.
[2019-06-12 12:45] VITALS: BP_SYST 131
[2019-06-12] MEDS: NACL 0.9% 1,000 ML IV SCH (13:23)
--- NOTE | 2019-06-12 14:10 | NUR ---
ROUNDS PT IN BED, NO S/S OF DISTRESS OR SOB NOTED, PT HAS NO FACIAL GRIMACING NOTED FOR PAIN, PT IN STABLE CONDITION, PT RESTING COMFORTABLY, WILL CONTINUE TO MONITOR PT FOR ANY CHANGES. ASPIRATION AND FALL PRECAUTIONS IN PLACE.
--- NOTE | 2019-06-12 15:00 | NUR ---
G TUBE FEEDING CHANGED G TUBE FEEDING CHANGED, G TUBE PLACEMENT VERIFIED, FLUSHES, PATENT, NO RESIDUAL NOTED, PT TOLERATED, ASPIRATION PRECAUTIONS IN PLACE. PRO SOURCE GIVEN WITH FEEDING CHANGE.
[2019-06-12 16:35] VITALS: BP_SYST 152
--- NOTE | 2019-06-12 16:56 | NUR ---
CALL DR LIZZY WANG, AWAITING CALL BACK FOR D/C ORDER TO [facility]. Addendum: 06/12/19 at 1829 by Helga Brewster RN CALLED BACK AND GAVE ORDER TO D/C PATIENT TO [facility] WITH SAME HOSPITAL ORDERS, WITH CHRISTIANSON CATHETER AND IV CATHETER.
[2019-06-12] MEDS: MONTELUKAST 10 MG TABLET GT SCH (17:43)
--- NOTE | 2019-06-12 18:40 | NUR ---
CLOSING NOTE PT IN BED, NO S/S OF DISTRESS OR SOB NOTED, PT HAS NO FACIAL GRIMACING NOTED FOR PAIN, PT IN STABLE CONDITION. PT ON OXYGEN 2 LITERS VIA NASAL CANNULA. IV CATHETER PATENT, NO SIGNS OF INFECTION OR INFILTRATION NOTED, RUNNING IV FLUIDS ORDERED. F/C DRAINING VIA GRAVITY. PT HAS A G TUBE, PATENT, NO RESIDUAL, FLUSHES AND PLACEMENT VERIFIED, TOLERATING FEEDINGS ORDERED. PT ON AIR MATTRESS. BED AT LOWEST POSITION. FALL, SAFETY, ASPIRATION AND SAFETY PRECAUTIONS IN PLACE. WILL ENDORSE CARE OF PT TO INCOMING NURSE, MADE CHARGE NURSE AWARE THAT THERE IS A DISCHARGE ORDER TO TRANSFER TO [facility] VIA S.
--- NOTE | 2019-06-12 19:30 | NUR ---
Pt was received lying in bed with his eyes open, but pt is non-verbal. Per day shift nurse, [facility]. Day shift nurse stated pt needs Flu vaccine before discharge because a Rep at [facility] informed her pt has not received Flu vaccine yet. Day shift nurse stated DC orders were received late and DC packet needs to be completed by car shifter.
[2019-06-12 20:00] VITALS: BP_SYST 154
--- NOTE | 2019-06-12 20:00 | NUR ---
RN contacted [facility] ([phone]) and spoke with Kale who stated pt is not one of the pts they are expecting today. Kale stated 4 patients are coming to their Facility [facility]iz is not one of them. He advised me to contact [facility]. RN contacted [facility] and spoke with Maureen, Nursing High Density Talc Coater Operator. Per Maureen, pt is not coming to their facility. Charge nurse notified.
--- NOTE | 2019-06-12 20:20 | NUR ---
WALLACE LAURA CALLED : CALLED AND TALKED WITH WALLACE LAURA NURSING PHOTOGRAPHIC PROCESSOR JESSICA , PER HER PTS NAME IS NOT IN THE LIST , SHE CANNOT ACCEPT THE PT SINCE THE NAME IS NOT ON THE LIST . SHE SAID MILK POWDER GRINDER HAS TO ARRANGE THE TRANSFER THAT CAN ONLY HAPPENS DURING THE DAY SHIFT . INFORMED HER THAT [facility] RECEIVED CALL FROM [facility] SAYING THAT PT WILL BE TRANSFERRING TONIGHT TO WALLACE LAURA , PHOTOGRAPHIC PROCESSOR STATED SHE DIDNT RECEIVED ANY INFORMATION REGARDING IT , SO SHE CANNOT ACCEPT THE PT TONIGHT .WILL CALL AND NOTIFY MD Torres
--- NOTE | 2019-06-12 20:30 | NUR ---
Spoke with CHRYSTAL Lou Belt Loop Maker who called back after Supervisor Dog License Officer Katelynn left her a voice mail message to call back. Dasha stated she did not receive a phone call from [facility] for transfer of this pt. Dasha stated the phone call she received was for another pt with the last name, Verónica in [facility] who is to be transferred to [facility], Room 310-A. Dasha stated she gave the information regarding Verónica to CHRYSTAL Love.
--- NOTE | 2019-06-12 20:50 | NUR ---
RN NOTES WITH THE HELP OF HOUSE SUP DAY SHIFT RN WAS CALLED TO CHECK REGARDING THE DC ORDER EARLIER ,GERALDTYRELL CALLED BACK NOW STATED OLEGARIO YO FROM [facility] CALLED AND STATED PT IS ACCEPTED THERE . INFORMED HER THAT PRIMARY RN CALLED AND TALKED TO MD AND CANCELLED DC FOR TONIGHT DUE TO THE SITUATION.( SINCE RN CALLED BACK LATE PRIMARY RN CALLED AND INFORMED ATTENDING MD THE SITUATION THAT [facility] CANNOT ACCEPT PT TONIGHT AND RECEIVED CANCEL DC ORDER )
--- NOTE | 2019-06-12 22:00 | NUR ---
Pt is tolerating GT Feeding well. IVF is infusing well in RU Chest without any signs of infiltration at the IV site. No distress or seizure activity noted. Fall and safety precautions are in place.
[2019-06-12] MEDS: LORazepam 1 MG TABLET GT SCH (22:33)
[2019-06-12] MEDS: LamoTRIgine 100 MG TABLET GT SCH (22:39)
[2019-06-12] MEDS: VANCOMYCIN HCL 750 MG in NS 250 ML IV SCH (23:53)
[2019-06-12 23:55] VITALS: BP_SYST 144
--- NOTE | 2019-06-13 | NUR ---
Pt is resting quietly in bed. IVF and GTF are infusing well. Fall and safety precautions are in place.
--- NOTE | 2019-06-13 01:39 | NUR ---
IVF is infusing well in RU chest. GT Feeding is in progress and well tolerated by pt. No distress or seizure activity noted at this time. Fall and safety precautions are in place.
--- NOTE | 2019-06-13 03:00 | NUR ---
No acute distress or seizure activity noted. IVF and GTF are infusing well.
[2019-06-13] MEDS: ALBUTEROL SULFATE 0.083% 2.5 MG/3 ML VIAL.NEB INH SCH ×3 (04:03→11:17)
--- NOTE | 2019-06-13 04:25 | NUR ---
Pt is resting quietly in bed. IVF and GT Feeding are infusing well. Fall, seizure and safety precautions are in place.
[2019-06-13] MEDS: DILTIAZEM HCL 60 MG TABLET PO SCH ×2 (05:57→14:26)
[2019-06-13] MEDS: PIPERACILLIN/TAZO 4.5GM/DEX-IS 100 ML IV SCH (05:57)
--- NOTE | 2019-06-13 06:45 | NUR ---
IVF and GTF are infusing well. All pt's needs were attended to. Will endorse to day shift nurse.
[2019-06-13] MEDS: IPRATROPIUM BROM 0.5 MG/2.5 ML VIAL.NEB (ATROVENT) INH SCH ×2 (07:10→11:16)
[2019-06-13 07:21] LABS: CALCIUM 8.6 mg/dL (8.4-11.0); CREATININE 0.62 mg/dL (0.55-1.30); POTASSIUM 3.5 mmol/L (3.5-5.1)
[2019-06-13 07:27] LABS: BASOPHILS % (AUTO) 0.1 % (0.0-2.0); HEMOGLOBIN 12.2 g/dL (14.0-18.0); LYMPHOCYTES # (AUTO) 0.4 K/uL (1.0-5.5); MEAN CORPUSCULAR HEMOGLOBIN 32 pg (27-31); MEAN CORPUSCULAR HGB CONC 34 % (32-36); MEAN CORPUSCULAR VOLUME 93 fL (79.0-98.0); MONOCYTES # (AUTO) 0.2 K/uL (0.0-1.0); MONOCYTES % (AUTO) 2.7 % (1.7-9.3); NEUTROPHILS # (AUTO) 6.3 K/uL (1.8-7.7); NEUTROPHILS % (AUTO) 91.2 % (40.0-70.0); PLATELET COUNT (AUTO) 360 K/uL (130-430); RED BLOOD CELL COUNT(AUTO) 3.87 MIL/uL (4.2-6.2); RED CELL DISTRIBUTION WIDTH 13.7 % (9.0-15.0)
--- NOTE | 2019-06-13 07:30 | NUR ---
Opening note patient resting in bed at this time, No SOB. A/Ox1, non verbal. opens eyes to verbal stimuli. No facial grimacing. Iv patent, intact, and infusing fluids as ordered. no adverse side effects noted. On GT feeding, tolerating well. No residual noted. no nausea, no vomiting noted. Shabazz catheter in place, draining yellow urine to gravity. On safety, aspiration and seizure precautions, HOB kept elevated. bed alarm on, bed in lowest position, 3 side rails up. call light within reach. patient in stable condition. padded side rails in place. Will continue to monitor.
[2019-06-13 07:36] LABS: WHITE BLOOD COUNT (AUTO) 6.9 K/uL (4.8-10.8)
[2019-06-13 08:05] VITALS: BP_SYST 155
[2019-06-13] MEDS ORDERED: POLYETHYLENE GLYCOL 3350, 17 GM/ POWD.PACK GT SCH (09:00)
[2019-06-13] MEDS: BACLOFEN 10 MG TABLET GT SCH ×2 (09:04→14:26)
[2019-06-13] MEDS: FAMOTIDINE 20 MG TABLET GT SCH (09:04)
[2019-06-13] MEDS: CHOLECALCIFEROL (VITAMIN D3) 2,000 UNIT TABLET GT SCH (09:05)
[2019-06-13] MEDS: LORazepam 1 MG TABLET GT SCH (09:05)
[2019-06-13] MEDS: LamoTRIgine 100 MG TABLET GT SCH (09:05)
[2019-06-13] MEDS: CALCIUM CARBONATE/VITAMIN D3 1 TAB TABLET GT SCH (09:05)
[2019-06-13] MEDS: MULTIVITS,CA,MINERALS/IRON/FA 1 TABLET GT SCH (09:05)
[2019-06-13] MEDS: methylPREDNISolone SOD SUCC/PF 62.5 MG/ML VIAL IVP SCH (09:06)
[2019-06-13] MEDS: HEPARIN SODIUM,PORCINE 5000 UNITS/ML VIAL SUBCUT SCH (09:07)
--- NOTE | 2019-06-13 09:30 | NUR ---
medications All morning medications given as ordered. No adverse side effects. no nausea, no vomiting noted. Patient in stable condition.
--- NOTE | 2019-06-13 09:53 | NUR ---
Case mgt: I rec'd dc orders to [facility]-per note on faxed cover sheet, contact is Niesha Munoz CM at [facility] for transfer approval-I called ph#[phone] several times, but number is non-working number-just beeps--I called Christiano Jorge # [phone]--on face sheet-Matt answered-he gave me Christiano Jorge's (medical administrator) weekend ph#[phone]-I called and LM to call me raad re: transfer to [facility]--LIUDMILA CARROLL Addendum: 06/13/19 at 1011 by Renetta Dixon RN Case mgt: I s/w Lindsay at [facility]-she gave me another #[phone] for Niesha Munoz CM for [facility]--I LM for her to call me back--I also pressed "0" for emergent assistance--it said ext#[phone] is unavailable and I LV to call me back re: [facility] transfer--LIUDMILA CARROLL Addendum: 06/13/19 at 1042 by Renetta Dixon RN Case mgt: Christiano Jorge ([employer] [facility] Adminstrator) called me back and gave permission for transfer but he is not medical administrator for [facility]-He gave me ph#[phone] for [facility]-I called-the exchange transferred me (after 2nd call to them)to Marco Antonio Rowe who is the on-call animal maintenance supervisor for [facility]-He gave permission to transfer the pt to [facility] and needs a call back when I get the room numberMelissa Montoya is calling me back with room number--LIUDMILA CARROLL Addendum: 06/13/19 at 1107 by Renetta Dixon RN Case mgt: Placed on will-call for [facility] [phone]--as pt is going on telemetry--waiting for Lindsay from [facility] to call me with bed#. [facility] ph#[phone]--LIUDMILA CARROLL
[2019-06-13] MEDS ORDERED: FUROSEMIDE 20 MG/2 ML VIAL IVP ONE (10:00)
[2019-06-13] MEDS: VANCOMYCIN HCL 750 MG in NS 250 ML IV SCH (10:20)
--- NOTE | 2019-06-13 11:16 | NUR ---
Bowel movement Patient noted with 1 bowel movement. Skin care provided. Linens changed.
[2019-06-13 11:30] VITALS: BP_SYST 160
[2019-06-13] MEDS: NACL 0.9% 1,000 ML IV SCH (12:03)
[2019-06-13] MEDS: MENTHOL/ZINC OXIDE 113 GM OINT. TP PRN (12:04)
--- NOTE | 2019-06-13 12:51 | NUR ---
Lindsay from [facility] Rec'd bed#207A--call report to [phone]--I called [facility] back (was on will-call)-arranged 3:00pm picking crew supervisor ACLS for telemetry monitory--Transfer packet on nursing station--Nurse Juan in pt room, US Almanzar took down information and will give it to Juan. RN
--- NOTE | 2019-06-13 13:00 | NUR ---
Transfer acknowledgement Spoke with Marianne esquivel manager urgent care at [facility], stated Christiano vincent and Lynda Bustamante is aware of transfer. unable to reach them both.
[2019-06-13] MEDS ORDERED: PIPE4.5F2 IV (14:50)
[2019-06-13 14:51] VITALS: BP_SYST 143
--- NOTE | 2019-06-13 15:00 | NUR ---
PT TRANSFERRED Report given to Linda CARROLL at [facility] in [place]. Transfer packet with Transfer Orders and Medication Reconciliation form given to EMT with report. Exitcare provided. [facility] ID band removed, replaced with ID band with pt's name and . IV catheter, intact.no active bleeding. Shabazz catheter in place. GT in place. All belongings sent with patient. Patient left floor via gurney escorted by EMT in no distress.
[2019-06-13] MEDS ORDERED: FUROSEMIDE 20 MG/2 ML VIAL IVP SCH (21:00)
== END 2019-06-13 15:20 | DRG 871 ==
LOC: SED 12:15 → STU 15:16
PROVIDERS: ADMIT Internal Medicine; ATTEND Internal Medicine
DX: A41.9 Sepsis, unspecified organism (principal); J18.1 Lobar pneumonia, unspecified organism; E87.1 Hypo-osmolality and hyponatremia; J44.0 Chronic obstructive pulmonary disease with (acute) lower respiratory infection; E46 Unspecified protein-calorie malnutrition; N39.0 Urinary tract infection, site not specified; I47.1 Supraventricular tachycardia; F79 Unspecified intellectual disabilities; I50.9 Heart failure, unspecified; K21.9 Gastro-esophageal reflux disease without esophagitis; R13.10 Dysphagia, unspecified; N31.9 Neuromuscular dysfunction of bladder, unspecified; G40.909 Epilepsy, unspecified, not intractable, without status epilepticus; E87.5 Hyperkalemia; Z93.1 Gastrostomy status; Z88.6 Allergy status to analgesic agent; Z68.31 Body mass index [BMI] 31.0-31.9, adult; Z79.899 Other long term (current) drug therapy
CPT/HCPCS: 36415; 71045; 76604; 80048; 80053; 80202-TC; 81003; 83605; 83735-TC; 83880; 84443-TC; 85007; 85025; 85027; 87040-TC; 87081; 87086; 93306; 94640; 94760; 96365; 96367; 99291; G0378; J1644; J1940; J2543; J2930; J3370; J3490; J7030; J7040; J7050; J7060; J7613; J7620

== ENCOUNTER 2020-03-03 22:25 | Emergency (ER) | payer OTHER, MEDICAID ==
[~2020-03-03] VITALS: Ht 167.6 cm; Wt 90.7 kg
[2020-03-03 22:25] VITALS: BP_SYST 137
[~2020-03-03 22:25] MED LIST: ATRMDI INH; BACL10TA GT; BUDE6HFA INH; LAM100 PO; LAMO150T2 PO; LORA0.5T GT; MONT10TA25 GT; MULT-33 GT; OSCD500 GT; PIPE4.5F2 IV; POLY17PO20 PO; VITD2000 GT; [UNRECOGNIZED DRUG - CODE] GT
--- NOTE | 2020-03-03 22:25 | NUR ---
Pt Triaged in Waiting ambulance due to isolation requirements. 2 EMT-B's monitoring patients and instructed to report changes in V/S or condition.
--- NOTE | 2020-03-04 00:33 | NUR ---
Patient to ER bed 05 to gown for evaluation. Side rails up. Report given to CARLY Oliveira.
--- NOTE | 2020-03-04 00:40 | NUR ---
PATIENT BIB EMS FROM [facility] FOR BEING GIVEN TUBE FEEDING AT APPROXIMATELY 5 PM AND THEN HAVING A "COUGHING FIT AND APPROXIMATELY 7PM." PER RESCARE STAFF, GTUBE PH WAS WITHIN NORMAL LIMITS, PLACEMENT WAS CONFIRMED AND PATIENT HOB WAS UP 30 DEGREES DURING FEEDING." PER RESCARE STAFF, TEMPERATURE WAS TAKEN AND PATIENT HAD 101 TEMPERATURE. PATIENT A&OX1. LUNGS CTAB WITH NO USE OF ACCESSORY MUSCLES. PATIENT PRESENTS WITH NO COUGH UPON ARRIVAL TO HOSPITAL. 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 GTUBE TO UPPER ABDOMEN. PATIENT INCONTINENT. PER EMS, PATIENT HAS NOT BEEN TESTED FOR COVID 19 BUT ALL OTHER BEDS IN FACILITY HAVE AND ARE NEGATIVE. BED LOCKED, IN LOWEST POSITION AND SIDE RAILS UP FOR SAFETY. AWAITING FURTHER ORDERS AND WILL CONTINUE TO MONITOR.
--- NOTE | 2020-03-04 00:45 | NUR ---
ER at bedside examining patient.
--- NOTE | 2020-03-04 01:20 | NUR ---
RADIOLOGY AT BEDSIDE OBTAINING XRAY.
--- NOTE | 2020-03-04 01:50 | NUR ---
MULTIPLE IV ATTEMPTS WITH NO ACCESS. MD KAT MADE AWARE.
--- NOTE | 2020-03-04 02:50 | NUR ---
# 16 FR In and Out catheter with use of sterile technique. Immediate return of 500 ml YELLOW urine noted. Urine sample collected and sent to lab. Pt tolerated procedure WELL. Patient unable to toilet self.
[2020-03-04 03:00] LABS: BILIRUBIN,URINE NEGATIVE (NEGATIVE); BLOOD, URINE NEGATIVE (NEGATIVE); CLARITY/URINE SL CLOUDY (CLEAR); COLOR,URINE YELLOW (YELLOW); GLUCOSE,URINE NEGATIVE (NEGATIVE); KETONES,URINE NEGATIVE (NEGATIVE); LEUKOCYTE ESTERASE ,URINE 3+ (NEGATIVE); NITRITE, URINE NEGATIVE (NEGATIVE); PH,URINE 7.5 (5.0-8.0); PROTEIN URINE NEGATIVE (NEGATIVE); UROBILINOGEN,URINE 0.2 (0.2-1.0)
[2020-03-04 03:13] LABS: BACTERIA,URINE MODERATE /HPF (None Seen); RBC,URINE 0-3 /HPF (0-3); WBC,URINE 20-50 /HPF (0-3)
--- NOTE | 2020-03-04 03:20 | NUR ---
DR. KAT AT BEDSIDE ATTEMPTING IV ACCESS.
--- NOTE | 2020-03-04 03:35 | NUR ---
DR. KAT AT BEDSIDE OBTAINING BLOOD SPECIMENS FOR LABS. WILL CONTINUE TO MONITOR.
[2020-03-04] MEDS ORDERED: cefTRIAXone 1 GM in LIDOCAINE 1%, 20 ML MDV 2.1 ML IM ONE (04:00)
[2020-03-04 04:16] LABS: BASOPHILS # (AUTO) 0.1 K/uL (0.0-0.2); EOSINOPHILS # (AUTO) 0.4 K/uL (0.0-0.4); LYMPHOCYTES % (AUTO) 28.8 % (20.5-51.5); NEUTROPHILS % (AUTO) 59.5 % (40.0-70.0)
[2020-03-04 04:20] LABS: EOSINOPHILS % (AUTO) 3.5 % (0.0-4.0); HEMATOCRIT 38.5 % (36-54); HEMOGLOBIN 12.8 g/dL (14.0-18.0); LYMPHOCYTES # (AUTO) 3.1 K/uL (1.0-5.5); MEAN CORPUSCULAR HEMOGLOBIN 30 pg (27-31); MEAN CORPUSCULAR HGB CONC 33 % (32-36); MEAN CORPUSCULAR VOLUME 90 fL (79.0-98.0); MONOCYTES # (AUTO) 0.8 K/uL (0.0-1.0); MONOCYTES % (AUTO) 7.2 % (1.7-9.3); NEUTROPHILS # (AUTO) 6.5 K/uL (1.8-7.7); PLATELET COUNT (AUTO) 278 K/uL (130-430); RED BLOOD CELL COUNT(AUTO) 4.27 MIL/uL (4.2-6.2); RED CELL DISTRIBUTION WIDTH 14.2 % (9.0-15.0); WHITE BLOOD COUNT (AUTO) 10.9 K/uL (4.8-10.8)
--- NOTE | 2020-03-04 04:30 | NUR ---
LAB AT BEDSIDE.
[2020-03-04 04:43] LABS: CALCIUM 8.6 mg/dL (8.4-11.0); CREATININE 0.51 mg/dL (0.55-1.30); POTASSIUM 3.8 mmol/L (3.5-5.1)
[2020-03-04 04:48] LABS: ALBUMIN 3.3 g/dL (3.4-4.8); TOTAL BILIRUBIN 0.4 mg/dL (0.0-1.0)
--- NOTE | 2020-03-04 05:02 | NUR ---
PATIENT MEDICATED BY CARLY MALONE.
--- NOTE | 2020-03-04 06:00 | NUR ---
TRANSPORT CALLED FOR PATIENT TO BE TAKEN BACK TO [facility]. TRANSPORT ARRIVAL IS APPROXIMATELY 0630 AM.
[2020-03-04 06:55] VITALS: BP_SYST 155
--- NOTE | 2020-03-04 06:55 | NUR ---
Patient, EMS, and facility given written and verbal discharge instructions and verbalizes understanding. ER MD Degroot discussed with patient the results and treatment provided. Patient in stable condition. ID arm band removed. Rx of sulfamethoxazole/trimethoeprim given. Patient educated on pain management and to follow up with PMD. Pain Scale 0/10. Opportunity for questions provided and answered. Medication side effect fact sheet provided. Patient transported back to [facility] where [facility] lives [facility].
== END 2020-03-04 06:55 ==
LOC: SED 22:25
DX: N39.0 Urinary tract infection, site not specified (principal); G80.9 Cerebral palsy, unspecified; R09.89 Other specified symptoms and signs involving the circulatory and respiratory systems; J44.9 Chronic obstructive pulmonary disease, unspecified; Z79.899 Other long term (current) drug therapy; Z20.828 Contact with and (suspected) exposure to other viral communicable diseases
CPT/HCPCS: 36415; 71045; 80053; 81000; 83605; 85025; 87040; 87086; 87186; 93005; 96372; 99285; C9803; J0696; J2001; U0003